=== PATIENT | male | born 1995 | race Two or more races ===

== ENCOUNTER 2018-06-21 16:29 | Emergency (ER) | payer MEDICAID ==
[2018-06-21 16:34] VITALS: BP 121/87
--- NOTE | 2018-06-21 16:39 | EDPHY ---
H & P Stated Complaint: opened car door into face-- lac to forehead Time Seen by Provider: 06/21/18 16:38 HPI/ROS: HPI CHIEF COMPLAINT: Left eyebrow laceration HISTORY OF PRESENT ILLNESS: Very pleasant 23-year-old male, history of seizures , on Keppra, presents emergency room after she sustained a left eyebrow laceration. The patient was opening a car door he states he was in a [place] she was trying to get in the car to warm up he was cold. The car door corner struck him in the left eyebrow he sustained a vertically oriented 3 cm laceration. No LOC. No headache. Denies nausea, denies headache, denies neck pain, denies any other complaints. Tetanus shot up-to-date. Past Medical History: Seizures on Keppra Past Surgical History: No recent surgical history Social History: Denies drugs alcohol tobacco. Family History: Noncontributory ROS REVIEW OF SYSTEMS: 10 Systems were reviewed and negative with the exception of the elements mentioned in the history of present illness. Exam Constitutional triage nursing summary reviewed, vital signs reviewed, awake/ alert. Eyes normal conjunctivae and sclera, EOMI, PERRLA. HENT head/neck: Left eyebrow vertically oriented mid eyebrow 3 cm laceration. Small hematoma. Otherwise atraumatic head and neck exam. normal inspection, atraumatic, moist mucus membranes, no epistaxis, neck supple/ no meningismus, no raccoon eyes. Respiratory clear to auscultation bilaterally, normal breath sounds, no respiratory distress, no wheezing. Cardiovascular rate normal, regular rhythm, no murmur, no edema, distal pulses normal. Gastrointestinal soft, non-tender, no rebound, no guarding, normal bowel sounds, no distension, no pulsatile mass. Genitourinary no CVA tenderness. Musculoskeletal no midline vertebral tenderness, full range of motion, no calf swelling, no tenderness of extremities, no meningismus, good pulses, neurovascularly intact. Skin pink, warm, & dry, no rash, skin atraumatic. Neurologic awake, alert and oriented x 3, AAOx3, moves all 4 extremities equally, motor intact, sensory intact, CN II-XII intact, normal cerebellar, normal vision, normal speech. Psychiatric normal mood/affect. Heme/Lymph/Immune no lymphadenopathy. Differential Diagnosis: Includes but is not limited to in a particular order facial laceration, soft tissue injury, facial contusion, intracranial bleed, skull fracture Medical Decision Making: This patient is normal neurological exam here in emergency room. Denies any complaints. Denies headache. Has a vertically oriented left eyebrow laceration 2 cm that will need to be repaired. Tetanus shot up-to-date. Re-evaluation: Laceration Repair Procedure: Verbal Consent was obtained, Under sterile conditions, The patient had lidocaine with epinephrine used approximately 5ccs to local anesthetize the LEFT EYEBROW 3CM VERTICAL MID EYEBROW Laceration. The wound was copiously irrigated with sterile fluid, the wound was explored for foreign bodies there were none visualized, the wound was explored with a sterile glove to the base. There are no deep structures involved, including no arterial injury. THREE 6.O PROLENE interrupted Sutures were placed in this patient's laceration. He had good close approximation of the wound edges. He Tolerated this well. Patient understands have sutures removed in 7 days Return emergency room if worsening symptoms questions or concerns. Source: Patient - Personal History Current Tetanus/Diphtheria Vaccine: Yes Current Tetanus Diphtheria and Acellular Pertussis (TDAP): Yes Tetanus Vaccine Date: 2014 - Medical/Surgical History Hx Asthma: No Hx Chronic Respiratory Disease: No Hx Diabetes: No Hx Cardiac Disease: No Hx Renal Disease: No Hx Cirrhosis: No Hx Alcoholism: No Hx HIV/AIDS: No Hx Splenectomy or Spleen Trauma: No Other PMH: epilepsy - Social History Smoking Status: Current some day smoker Constitutional: Initial Vital Signs Temperature (C) 36.7 C 06/21/18 16:32 Heart Rate 65 06/21/18 16:32 Respiratory Rate 16 06/21/18 16:32 Blood Pressure 121/87 H 06/21/18 16:32 O2 Sat (%) 97 06/21/18 16:32 O2 Delivery Mode Room Air Allergies/Adverse Reactions: No Known Allergies Allergy (Unverified 06/21/18 16:31) Home Medications: Medication Instructions Recorded Raimundo 06/21/18 Departure - Departure Disposition: Home, Routine, Self-Care Clinical Impression: Laceration Facial laceration Qualifiers: Encounter type: initial encounter Qualified Code(s): S01.81XA - Laceration without foreign body of other part of head, initial encounter Condition: Good Instructions: Care For Your Stitches (ED), Laceration (ED) Additional Instructions: 1. Your sutures need to be removed in 7 days. 2. Return emergency room to have the sutures removed 3. Keep her wound clean, dry, protected. 4. Warm soapy water in 24 hr is fine but nothing directly in the wound.
== END 2018-06-21 17:05 | disposition home or self-care (01) ==
PROC: 08QPXZZ Repair Left Upper Eyelid, External Approach (ICD-10-PCS; principal; 2018-06-21)
DX: S01.112A Laceration without foreign body of left eyelid and periocular area, initial encounter (principal); W22.8XXA Striking against or struck by other objects, initial encounter; Y92.810 Car as the place of occurrence of the external cause; Y93.9 Activity, unspecified; Y99.9 Unspecified external cause status